=== PATIENT | male | born 1995 ===

== ENCOUNTER 2022-04-06 01:15 | Outpatient (CLI) | payer MEDICAID, SELFPAY ==
--- NOTE | 2022-04-06 | DI.US_ITS ---
Exam(s) US ABDOMEN LIMITED EXAM: US ABDOMEN LIMITED CLINICAL HISTORY: NAUSEA, VOMITING, R11.2 PRE CCK CROW SCAN TECHNIQUE: Ultrasound abdomen performed using standard protocol. COMPARISON: No exams were available for comparison FINDINGS: Examination limited to the gallbladder/CBD There is no ascites evident. GALLBLADDER/BILIARY: There are no gallstones. No gallbladder wall edema nor pericholecystic fluid. The common hepatic duct isnot dilated, measuring 3-4mm at the level of samantha hepatis. IMPRESSION: 1. No evidence of cholelithiasis nor dilatation of the biliary tree. 2. There is no ascites. DATA REPOSITORY:
--- NOTE | 2022-04-06 08:30 | DI.NM_ITS ---
Exam(s) NM HEPATOBILIARY CCK GRP EXAM: NM HEPATOBILIARY CCK GRP CLINICAL HISTORY: NAUSEA AND VOMITING, R11.2. TECHNIQUE: Injected dose: 5 mCi Tc-99 mebrofenin 1.4 micrograms CCK Post-Gallbladder fillin.02 mcg/kg CCK intravenously over a 15min infusion. Addition images: 20 minute dynamic during CCK administration. COMPARISON: Dedicated gallbladder ultrasound performed today just prior to this nuclear procedure re veals no evidence of gallstones nor gallbladder wall edema and a nondilated common hepatic duct. FINDINGS: There is normal uptake and excretion of radiopharmaceutical by the liver and activity is seen within the gallbladder lumen starting at 4 minutes post injection In response to CCK infusion there is a normal ejection fraction of 98 percent demonstrated (35 percen t is lower limits normal). IMPRESSION: Negative study. There is no evidence of obstruction of the cystic duct and there is no evidence of g allbladder dysfunction.
== END 2022-04-06 01:35 ==
PROVIDERS: Visit Provider Surgery
DX: R11.2 Nausea with vomiting, unspecified (principal)
CPT/HCPCS: 78227; 76705